=== PATIENT | male | born 1985 | race African-American/Black ===

== ENCOUNTER 2021-12-12 23:59 | Emergency (ER) | payer MEDICARE, OTHER ==
[~2021-12-12] VITALS: Ht 182.9 cm; Wt 80.0 kg
[~2021-12-12 23:59] MED LIST: BENZ2TAB2 PO; DIVA500T13 PO; FLUO20CA19 PO; OLAN20TA PO; RISP3TAB44 PO; TRAZ50TA2 PO
[2021-12-13 10:59] VITALS: BP 139/79
== END 2021-12-13 11:32 | disposition short-term general hospital (02) ==
LOC: ER 12-13 00:02
DX: S02.642A Fracture of ramus of left mandible, initial encounter for closed fracture (principal); Z79.899 Other long term (current) drug therapy; Z88.8 Allergy status to other drugs, medicaments and biological substances; Z20.822 Contact with and (suspected) exposure to COVID-19; X58.XXXA Exposure to other specified factors, initial encounter; Y93.89 Activity, other specified; Y92.89 Other specified places as the place of occurrence of the external cause; Y99.8 Other external cause status
CPT/HCPCS: 36415; 70450; 70486; 87426

== ENCOUNTER 2022-03-12 07:21 | Emergency (ER) | payer MEDICARE ==
[~2022-03-12] VITALS: Ht 182.9 cm; Wt 72.7 kg
[2022-03-12 07:22] VITALS: BP 153/84
[2022-03-12] MEDS ORDERED: IBUPROFEN 600 MG TAB PO ONE (08:00)
[2022-03-13] MEDS ORDERED: NAPR500T31 PO (15:17)
== END 2022-03-12 09:12 | disposition home or self-care (01) ==
LOC: ER 07:21 → EDBD 07:21 → ER 09:10
DX: M62.262 Nontraumatic ischemic infarction of muscle, left lower leg (principal); Z88.6 Allergy status to analgesic agent

== ENCOUNTER 2022-03-13 13:34 | Emergency (ER) | payer MEDICARE ==
[~2022-03-13] VITALS: Ht 182.9 cm; Wt 74.6 kg
[2022-03-13 14:15] VITALS: BP 158/74
[2022-03-13] MEDS ORDERED: KETOROLAC TROMETH 60MG/2ML VIAL IM ONE (15:00)
[2022-03-13] MEDS ORDERED: NAPR500T31 PO (15:17)
[2022-03-14] MEDS ORDERED: IBUP800T27 PO (17:43)
== END 2022-03-13 15:24 | disposition home or self-care (01) ==
LOC: ER 13:34
DX: M79.642 Pain in left hand (principal); M79.641 Pain in right hand; M79.672 Pain in left foot; M79.671 Pain in right foot; G89.4 Chronic pain syndrome; Z79.899 Other long term (current) drug therapy; Z88.8 Allergy status to other drugs, medicaments and biological substances
CPT/HCPCS: 96372; 99283; J1885

== ENCOUNTER 2022-03-14 06:37 | Emergency (ER) | payer MEDICARE ==
[~2022-03-14] VITALS: Ht 182.9 cm; Wt 75.7 kg
[~2022-03-14 06:37] MED LIST changes: +NAPR500T31 PO
[2022-03-14 08:22] VITALS: BP 139/93
[2022-03-14] MEDS ORDERED: ACETAMINOPHEN 500 MG TAB PO ONE (08:45)
[2022-03-14] MEDS ORDERED: IBUPROFEN 800 MG TAB PO ONE (09:00)
[2022-03-14] MEDS ORDERED: IBUP800T27 PO (17:43)
== END 2022-03-14 08:55 | disposition home or self-care (01) ==
LOC: ER 06:37
DX: M79.672 Pain in left foot (principal); M79.671 Pain in right foot; Z88.6 Allergy status to analgesic agent

== ENCOUNTER 2022-03-14 16:03 | Emergency (ER) | payer MEDICARE ==
[~2022-03-14] VITALS: Ht 182.9 cm; Wt 68.0 kg
[2022-03-14 17:41] VITALS: BP 146/76
[2022-03-14] MEDS ORDERED: IBUP800T27 PO (17:43)
[2022-03-14] MEDS ORDERED: IBUPROFEN 800 MG TAB PO ONE (18:00)
== END 2022-03-14 17:55 | disposition home or self-care (01) ==
LOC: ER 16:06
DX: G89.29 Other chronic pain (principal); M79.672 Pain in left foot; M79.671 Pain in right foot; Z79.1 Long term (current) use of non-steroidal anti-inflammatories (NSAID); Z79.899 Other long term (current) drug therapy; Z88.8 Allergy status to other drugs, medicaments and biological substances

== ENCOUNTER 2022-03-18 23:52 | Emergency (ER) | payer MEDICARE ==
[~2022-03-18] VITALS: Ht 182.9 cm; Wt 72.0 kg
[2022-03-18 23:52] VITALS: BP 155/79
[~2022-03-18 23:52] MED LIST changes: +IBUP800T27 PO
== END 2022-03-19 03:20 | disposition left against medical advice (07) ==
LOC: ER 23:52 → EDBD 23:52 → ER 03-19 03:20
DX: T69.8XXA Other specified effects of reduced temperature, initial encounter (principal); Z53.21 Procedure and treatment not carried out due to patient leaving prior to being seen by health care provider

== ENCOUNTER 2022-03-24 00:45 | Emergency (ER) | payer MEDICARE ==
[~2022-03-24] VITALS: Ht 182.9 cm; Wt 72.6 kg
[2022-03-24 01:06] VITALS: BP 160/68
== END 2022-03-24 02:43 | disposition left against medical advice (07) ==
LOC: EDBD 00:45 → ER 00:48
DX: J00 Acute nasopharyngitis [common cold] (principal); Z53.21 Procedure and treatment not carried out due to patient leaving prior to being seen by health care provider

== ENCOUNTER 2022-03-24 22:44 | Emergency (ER) | payer MEDICARE ==
[~2022-03-24] VITALS: Ht 182.9 cm; Wt 166.0 kg
[2022-03-24 22:44] VITALS: BP 131/69
[2022-03-25] MEDS ORDERED: NAPROXEN 500 MG TAB PO ONE (02:15)
== END 2022-03-25 02:35 | disposition home or self-care (01) ==
LOC: ER 22:45
DX: M79.672 Pain in left foot (principal); M79.671 Pain in right foot; Z88.6 Allergy status to analgesic agent; Z88.8 Allergy status to other drugs, medicaments and biological substances; Z79.899 Other long term (current) drug therapy; Z59.00 Homelessness unspecified

== ENCOUNTER 2022-03-25 13:27 | Emergency (ER) | payer MEDICARE ==
[~2022-03-25] VITALS: Ht 188 cm; Wt 73.5 kg
[2022-03-25 15:12] VITALS: BP 154/96
[2022-03-25] MEDS ORDERED: IBUPROFEN 800 MG TAB PO ONE (15:15)
== END 2022-03-25 18:06 | disposition home or self-care (01) ==
LOC: ER 13:27
DX: M79.672 Pain in left foot (principal); M79.671 Pain in right foot; Z79.1 Long term (current) use of non-steroidal anti-inflammatories (NSAID); Z79.899 Other long term (current) drug therapy; Z88.8 Allergy status to other drugs, medicaments and biological substances

== ENCOUNTER 2022-03-25 21:25 | Emergency (ER) | payer MEDICARE ==
[~2022-03-25] VITALS: Ht 182.9 cm; Wt 72.8 kg
[2022-03-25 21:34] VITALS: BP 152/90
== END 2022-03-26 03:19 | disposition home or self-care (01) ==
LOC: ER 21:27
DX: M79.672 Pain in left foot (principal); M79.671 Pain in right foot; Z79.1 Long term (current) use of non-steroidal anti-inflammatories (NSAID); Z79.899 Other long term (current) drug therapy; Z88.8 Allergy status to other drugs, medicaments and biological substances

== ENCOUNTER 2022-03-26 14:47 | Emergency (ER) | payer MEDICARE ==
[~2022-03-26] VITALS: Ht 182.9 cm; Wt 73.4 kg
[2022-03-26 18:25] VITALS: BP 141/52
== END 2022-03-26 18:28 | disposition home or self-care (01) ==
LOC: ER 14:47
DX: I10 Essential (primary) hypertension (principal); Z88.6 Allergy status to analgesic agent

== ENCOUNTER 2022-03-29 15:09 | Emergency (ER) | payer MEDICARE ==
[~2022-03-29] VITALS: Ht 182.9 cm; Wt 72.7 kg
[2022-03-29] MEDS ORDERED: IBUPROFEN 600 MG TAB PO ONE (16:30)
[2022-03-29] MEDS ORDERED: IBUP800T26 PO (20:02)
[2022-03-29 20:05] VITALS: BP 147/93
== END 2022-03-29 20:12 | disposition home or self-care (01) ==
LOC: ER 15:11
DX: M79.672 Pain in left foot (principal); M79.671 Pain in right foot; Z59.00 Homelessness unspecified; Z88.8 Allergy status to other drugs, medicaments and biological substances

== ENCOUNTER 2022-03-29 23:56 | Emergency (ER) | payer MEDICARE ==
[~2022-03-29] VITALS: Ht 182.9 cm; Wt 72.0 kg
[2022-03-29 23:56] VITALS: BP 128/79
[~2022-03-29 23:56] MED LIST changes: +IBUP800T26 PO
[2022-03-30] MEDS ORDERED: LORazepam 0.5 MG TAB PO ONE (05:30)
== END 2022-03-30 07:08 | disposition home or self-care (01) ==
LOC: ER 23:56
DX: F41.9 Anxiety disorder, unspecified (principal); Z59.00 Homelessness unspecified; Z88.6 Allergy status to analgesic agent
CPT/HCPCS: 71045

== ENCOUNTER 2022-03-30 20:34 | Emergency (ER) | payer MEDICARE ==
[~2022-03-30] VITALS: Ht 182.9 cm; Wt 75.4 kg
[2022-03-30 20:39] VITALS: BP 151/100
== END 2022-03-31 01:17 | disposition home or self-care (01) ==
LOC: EDBD 20:34 → ER 20:35
DX: T69.9XXA Effect of reduced temperature, unspecified, initial encounter (principal); R68.83 Chills (without fever)

== ENCOUNTER 2022-04-01 19:59 | Emergency (ER) | payer MEDICARE ==
[~2022-04-01] VITALS: Ht 182.9 cm; Wt 71.2 kg
[2022-04-01 20:52] VITALS: BP 131/88
== END 2022-04-02 01:00 | disposition left against medical advice (07) ==
LOC: ER 20:05
DX: M79.10 Myalgia, unspecified site (principal); Z53.21 Procedure and treatment not carried out due to patient leaving prior to being seen by health care provider

== ENCOUNTER 2022-07-21 13:41 | Emergency (ER) | payer MEDICARE ==
[~2022-07-21] VITALS: Ht 180.3 cm; Wt 68.1 kg
[2022-07-21 14:41] VITALS: BP 162/81
== END 2022-07-21 14:50 ==
LOC: ER 13:41
DX: S20.312A Abrasion of left front wall of thorax, initial encounter (principal); T75.4XXA Electrocution, initial encounter; Z79.1 Long term (current) use of non-steroidal anti-inflammatories (NSAID); Z79.899 Other long term (current) drug therapy; Z88.8 Allergy status to other drugs, medicaments and biological substances; W86.8XXA Exposure to other electric current, initial encounter; Y93.89 Activity, other specified; Y92.89 Other specified places as the place of occurrence of the external cause; Y99.8 Other external cause status
CPT/HCPCS: 71045

== ENCOUNTER 2023-03-30 15:55 | Emergency (ER) | payer MEDICARE, MEDICAID ==
[~2023-03-30] VITALS: Ht 182.9 cm; Wt 64.3 kg
[~2023-03-30 15:55] MED LIST changes: -BENZ2TAB2 PO; +BENZ2TAB50 PO; +IBUP-1455 PO; +IBUP-1456 PO; -IBUP800T26 PO; -IBUP800T27 PO; +NAPR-746 PO; -NAPR500T31 PO; +TRAZ-227 PO; -TRAZ50TA2 PO
[2023-03-30 16:10] VITALS: BP 128/74; PULSE 63; RESP 18; O2SAT 97
== END 2023-03-30 19:27 | disposition left against medical advice (07) ==
LOC: ER 15:55
DX: R50.9 Fever, unspecified (principal); Z53.21 Procedure and treatment not carried out due to patient leaving prior to being seen by health care provider